=== PATIENT | male | born 1955 | race Asian ===

== ENCOUNTER 2017-05-27 22:10 | Inpatient (IN) | payer SELFPAY ==
[~2017-05-27] VITALS: Ht 167.6 cm; Wt 87.5 kg
[2017-05-28] MEDS ORDERED: DILTIAZEM HCL 25 MG IV ONE ×2 (00:34→00:54)
[2017-05-28 00:37] LABS: BASOPHILS % (AUTO) 0.7 % (0.0-2.0); EOSINOPHILS # (AUTO) 0.1 /CMM (0.0-0.7); EOSINOPHILS % (AUTO) 1.3 % (0.0-6.0); HEMATOCRIT 44 % (39-51); HEMOGLOBIN 14.2 g/dL (13.5-17.5); LYMPHOCYTES # (AUTO) 2.5 /CMM (0.8-4.8); LYMPHOCYTES % (AUTO) 40.6 % (20.0-44.0); MEAN CORPUSCULAR HEMOGLOBIN 28 PG (26.0-33.0); MEAN CORPUSCULAR HGB CONC 32 g/dl (31.0-36.0); MEAN CORPUSCULAR VOLUME 86 fL (80-96); MONOCYTES # (AUTO) 0.3 /CMM (0.1-1.30); MONOCYTES % (AUTO) 5.5 % (2.0-12.0); NEUTROPHILS # (AUTO) 3.2 /CMM (1.8-8.9); NEUTROPHILS % (AUTO) 51.9 % (43.0-81.0); PLATELET COUNT (AUTO) 244 /CMM (150-450); RDW COEFFICIENT OF VARIATION 15.7 (11.5-15.0); RED BLOOD CELL COUNT(AUTO) 5.13 MIL/uL (4.5-6.0); WHITE BLOOD COUNT (AUTO) 6.2 K/uL (4.3-11.0)
[2017-05-28] MEDS ORDERED: DILTIAZEM HCL 50 MG IV ONE (00:52)
[2017-05-28 00:53] LABS: INR 1.13 (0.87-1.13); PROTHROMBIN TIME 11.8 SECS (9.5-12.7)
[2017-05-28 00:55] LABS: CALCIUM, SERUM 8.8 mg/dL (8.5-10.1); CREATININE 1.3 mg/dL (0.6-1.3); POTASSIUM 3.5 mmol/L (3.5-5.1)
[2017-05-28] MEDS ORDERED: DILTIAZEM HCL IV 125 MG in IV D5W 100 ML IV PRN ×2 (01:00→03:30)
[2017-05-28] MEDS ORDERED: DILTIAZEM HCL 50 MG IV IV ONE (01:00)
[2017-05-28 01:07] LABS: TROPONIN I 0.031 ng/mL (0.00-0.056)
[2017-05-28 01:08] LABS: ALBUMIN 3.4 g/dL (3.4-5.0); BILIRUBIN,DIRECT 0.3 mg/dL (0.0-0.2); BILIRUBIN,TOTAL 1.5 mg/dL (0.2-1.0); TOTAL PROTEIN, SERUM 7.5 g/dL (6.4-8.2)
[2017-05-28] MEDS ORDERED: HYDROCODONE/APAP 5/325MG 1 EACH TABLET PO PRN (03:30)
[2017-05-28] MEDS ORDERED: ZOLPIDEM TARTRATE 5 MG TABLET PO PRN (03:30)
[2017-05-28] MEDS ORDERED: ONDANSETRON HCL/PF 4 MG/2 ML VIAL IVP PRN (03:30)
[2017-05-28] MEDS ORDERED: Z GUARD REMEDY 2 OZ OINT TP PRN (03:30)
[2017-05-28] MEDS ORDERED: ACETAMINOPHEN 325 MG TABLET PO PRN (03:30)
[2017-05-28] MEDS ORDERED: DIGOXIN 0.25 MG TABLET PO ONE (03:30)
[2017-05-28] MEDS ORDERED: MAGNESIUM HYDROXIDE 30 ML UDC PO PRN (03:30)
[2017-05-28] MEDS ORDERED: MAG HYDROX/AL HYDROX/SIMETH 30 ML UDC PO PRN (03:30)
[2017-05-28 04:00] VITALS: BP 138/86
[2017-05-28] MEDS ORDERED: ENOXAPARIN SODIUM 40 MG/0.4 ML DISP.SYRIN SQ ONE (04:17)
[2017-05-28] MEDS ORDERED: DIGOXIN 0.25 MG TABLET ONE (04:17)
[2017-05-28] MEDS: ENOXAPARIN SODIUM 40 MG/0.4 ML DISP.SYRIN SQ SCH (05:01)
[2017-05-28] MEDS ORDERED: DILTIAZEM HCL 30 MG TABLET PO SCH (06:00)
[2017-05-28] MEDS ORDERED: DILTIAZEM HCL 30 MG TABLET ONE (06:13)
[2017-05-28 08:00] VITALS: BP 104/67
[2017-05-28] MEDS: ASPIRIN 81 MG TAB.CHEW PO SCH (08:24)
[2017-05-28 10:56] LABS: BASOPHILS % (AUTO) 0.6 % (0.0-2.0); EOSINOPHILS # (AUTO) 0.1 /CMM (0.0-0.7); EOSINOPHILS % (AUTO) 2.3 % (0.0-6.0); HEMATOCRIT 40 % (39-51); HEMOGLOBIN 12.9 g/dL (13.5-17.5); LYMPHOCYTES # (AUTO) 1.4 /CMM (0.8-4.8); LYMPHOCYTES % (AUTO) 28.8 % (20.0-44.0); MEAN CORPUSCULAR HEMOGLOBIN 28 PG (26.0-33.0); MEAN CORPUSCULAR HGB CONC 32 g/dl (31.0-36.0); MEAN CORPUSCULAR VOLUME 86 fL (80-96); MONOCYTES # (AUTO) 0.3 /CMM (0.1-1.30); MONOCYTES % (AUTO) 5.9 % (2.0-12.0); NEUTROPHILS % (AUTO) 62.4 % (43.0-81.0); PLATELET COUNT (AUTO) 217 /CMM (150-450); RDW COEFFICIENT OF VARIATION 15.8 (11.5-15.0); RED BLOOD CELL COUNT(AUTO) 4.64 MIL/uL (4.5-6.0); WHITE BLOOD COUNT (AUTO) 4.7 K/uL (4.3-11.0)
[2017-05-28 11:42] LABS: THYROID STIMULATING HORMONE 4.41 uIU/mL (0.358-3.74)
[2017-05-28 12:00] VITALS: BP 106/67
[2017-05-28] MEDS: DILTIAZEM HCL CD 240 MG PO SCH (13:00)
[2017-05-28] MEDS: FUROSEMIDE 40 MG/4 ML VIAL IV SCH ×2 (13:00→18:03)
[2017-05-28 13:24] LABS: ALBUMIN 2.9 g/dL (3.4-5.0); BILIRUBIN,TOTAL 1.4 mg/dL (0.2-1.0); CALCIUM, SERUM 8.3 mg/dL (8.5-10.1); CREATININE 1.1 mg/dL (0.6-1.3); POTASSIUM 3.5 mmol/L (3.5-5.1); TOTAL PROTEIN, SERUM 6.5 g/dL (6.4-8.2)
[2017-05-28 16:00] VITALS: BP 130/95
[2017-05-28 20:00] VITALS: BP 116/56
[2017-05-28] MEDS ORDERED: ATORVASTATIN 10 MG TABLET PO SCH (22:00)
[2017-05-29 00:15] VITALS: BP 99/72
[2017-05-29] MEDS: ENOXAPARIN SODIUM 40 MG/0.4 ML DISP.SYRIN SQ SCH (03:08)
[2017-05-29 04:10] VITALS: BP 103/70
[2017-05-29 06:36] LABS: BASOPHILS % (AUTO) 0.1 % (0.0-2.0); EOSINOPHILS # (AUTO) 0.1 /CMM (0.0-0.7); EOSINOPHILS % (AUTO) 1.7 % (0.0-6.0); HEMATOCRIT 39 % (39-51); HEMOGLOBIN 12.6 g/dL (13.5-17.5); LYMPHOCYTES # (AUTO) 0.9 /CMM (0.8-4.8); LYMPHOCYTES % (AUTO) 17.9 % (20.0-44.0); MEAN CORPUSCULAR HEMOGLOBIN 28 PG (26.0-33.0); MEAN CORPUSCULAR HGB CONC 32 g/dl (31.0-36.0); MEAN CORPUSCULAR VOLUME 86 fL (80-96); MONOCYTES # (AUTO) 0.3 /CMM (0.1-1.30); MONOCYTES % (AUTO) 6.2 % (2.0-12.0); NEUTROPHILS # (AUTO) 3.8 /CMM (1.8-8.9); NEUTROPHILS % (AUTO) 74.1 % (43.0-81.0); PLATELET COUNT (AUTO) 213 /CMM (150-450); RDW COEFFICIENT OF VARIATION 16.1 (11.5-15.0); RED BLOOD CELL COUNT(AUTO) 4.54 MIL/uL (4.5-6.0); WHITE BLOOD COUNT (AUTO) 5.2 K/uL (4.3-11.0)
[2017-05-29 06:49] LABS: TROPONIN I 0.017 ng/mL (0.00-0.056)
[2017-05-29 06:58] LABS: ALBUMIN 2.9 g/dL (3.4-5.0); BILIRUBIN,TOTAL 0.9 mg/dL (0.2-1.0); CALCIUM, SERUM 8.4 mg/dL (8.5-10.1); CREATININE 1.1 mg/dL (0.6-1.3); MAGNESIUM 2.2 mg/dL (1.8-2.4); PHOSPHORUS 3.2 mg/dL (2.5-4.9); POTASSIUM 3.3 mmol/L (3.5-5.1); TOTAL PROTEIN, SERUM 6.5 g/dL (6.4-8.2)
[2017-05-29 08:00] VITALS: BP 115/75
[2017-05-29 08:26] VITALS: BP 115/75
[2017-05-29] MEDS: DILTIAZEM HCL CD 240 MG PO SCH (08:26)
[2017-05-29] MEDS: ASPIRIN 81 MG TAB.CHEW PO SCH (08:26)
[2017-05-29] MEDS ORDERED: POTASSIUM CHLORIDE 20 MEQ TAB.PRT.SR PO ONE (10:00)
[2017-05-29] MEDS: POTASSIUM CHLORIDE 20 MEQ TAB.PRT.SR PO SCH ×2 (11:22→11:26)
[2017-05-29] MEDS ORDERED: RIVA10TA PO (11:59)
[2017-05-29] MEDS ORDERED: DILT240C88 PO (11:59)
[2017-05-29] MEDS ORDERED: RIVAROXABAN 10 MG TABLET PO SCH (17:00)
== END 2017-05-29 13:10 | disposition home or self-care (01) | DRG 308 ==
LOC: ER 22:12 → TELE-TD 05-28 03:32 → TELE1 05-28 10:06 → MEDSG1 05-29 10:39
PROVIDERS: ADMIT Internal Medicine; ATTEND Internal Medicine
DX: I48.91 Unspecified atrial fibrillation (principal); I50.31 Acute diastolic (congestive) heart failure; J90 Pleural effusion, not elsewhere classified; D68.59 Other primary thrombophilia; K59.00 Constipation, unspecified; R60.9 Edema, unspecified
CPT/HCPCS: 36415; 71010-TC; 74000-TC; 76700-TC; 80048-TC; 80053-TC; 80061-TC; 80076-TC; 82306; 83735-TC; 83880; 84100-TC; 84439-TC; 84443-TC; 84484-TC; 85025-TC; 85730-TC; 87081-TC; 93307-TC; A4606; J1650; J1940; J3490; J7060; Z7610